=== PATIENT | male | born 1980 | race Caucasian/White ===

== ENCOUNTER 2016-09-25 12:13 | Emergency (ER) | payer BC ==
[2016-09-25 12:16] VITALS: BP 148/82; PULSE 112; TEMP 36.8; O2SAT 98; Ht 167.6 cm
[2016-09-25] MEDS ORDERED: IBUPROFEN 600 MG TAB PO STA (12:39)
[2016-09-25] MEDS ORDERED: MULT-506 PO (12:50)
[2016-09-25] MEDS ORDERED: BACITRACIN OINT 15 GM TUBE ONE (12:51)
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
== END 2016-09-25 13:47 | disposition home or self-care (01) ==
LOC: C.EDB 12:15 → C.EDD 13:47
DX: T14.8 Other injury of unspecified body region (principal); V19.9XXA Pedal cyclist (driver) (passenger) injured in unspecified traffic accident, initial encounter